=== PATIENT | female | born 1990 | race American Indian/Alaskan Native ===

== ENCOUNTER 2016-10-06 01:03 | Inpatient (IN) | payer MEDICAID ==
[2016-10-06] MEDS ORDERED: SUBLIMAZE IV PRN (03:15)
[2016-10-06] MEDS ORDERED: MINERAL OIL PO PRN (03:15)
[2016-10-06] MEDS ORDERED: BRETHINE IVP PRN (03:15)
[2016-10-06] MEDS ORDERED: BRETHINE SUB-Q PRN (03:15)
[2016-10-06] MEDS ORDERED: ePHEDrine SULFATE IV PRN ×2 (03:15→05:42)
[2016-10-06] MEDS ORDERED: XYLOCAINE 2% INFILTRATI ONE (03:15)
[2016-10-06] MEDS ORDERED: ZOFRAN IV PRN ×2 (03:15→11:00)
[2016-10-06] MEDS: LACTATED RINGERS 1,000 ML IV SCH ×3 (03:40→08:20)
[2016-10-06 03:44] LABS: Hematocrit 40.5 % (30.3-42.9); Hemoglobin 13.3 gm/dl (10.1-14.3); Mean Corpuscular HGB Conc 33 % (30-34); Mean Corpuscular Hemoglobin 28 pg (28-32); Mean Corpuscular Volume 87 fl (79-97); Red Blood Count 4.68 M/mm3 (3.65-5.03); Red Cell Distribution Width 14.3 % (13.2-15.2); White Blood Count 7.4 K/mm3 (4.5-11.0)
[2016-10-06] MEDS ORDERED: PITOCin/NS 20 UNIT/1000ML DRIP 20 UNITS/1,000 ML BAG IV SCH (04:00)
[2016-10-06] MEDS ORDERED: PITOCin/NS 30 UNIT/500ML 30 UNITS/500 ML BAG IV SCH (04:00)
[2016-10-06 04:27] LABS: Platelet Count 104 K/mm3 (140-440)
[2016-10-06] MEDS ORDERED: ePHEDrine SULFATE ONE (04:47)
[2016-10-06] MEDS ORDERED: NARCAN 2 MG/2 ML IV PRN (05:42)
--- NOTE | 2016-10-06 05:46 | Anesthesia Consultation ---
Anesthesia Consult and Med Hx Date of service: 10/06/16 - Airway Anesthetic Teeth Evaluation: Good ROM Head & Neck: Adequate Mental/Hyoid Distance: Adequate Mallampati Class: Class II Intubation Access Assessment: Probably Good - Pulmonary Exam CTA: Yes - Cardiac Exam Cardiac Exam: RRR - Pre-Operative Health Status ASA Pre-Surgery Classification: ASA2, Emergency Proposed Anesthetic Plan: Epidural, Spinal - Pre-Anesthesia Comment Pre-Anesthesia Comments: Thrombocytopenia(platelet count 104,000). Drawn 0311 on 10/06/16. No prior history of low platelet count and no H/O coagulopathy. - Pulmonary Hx Asthma: No COPD: No Hx Pneumonia: No - Cardiovascular System Hx Hypertension: No - Central Nervous System Hx Seizures: No Hx Psychiatric Problems: No - Endocrine Hx Renal Disease: No Hx End Stage Renal Disease: No Hx Hypothyroidism: No Hx Hyperthyroidism: No - Hematic Hx Anemia: No Hx Sickle Cell Disease: No - Other Systems Hx Alcohol Use: No
[2016-10-06] MEDS ORDERED: fentaNYL-BUPIV 2 MCG/ML-0.125% 200 MCG/100 ML BAG EPIDURAL SCH (06:00)
--- NOTE | 2016-10-06 09:19 | History and Physical Report ---
History of Present Illness Date of examination: 10/06/16 Date of admission: 10/06/16 03:02 Chief complaint: srom clear and early labor History of present illness: This is a 18 yo at 38+1 weeks here for srom clear last night. she stated that at 12am she noticed abdominal pain. She was admitted to labor and delivery. 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 denies: smoking, alcohol abuse - Obstetrical History Expected Date of Delivery: 10/19/16 Actual Gestation: 38 Week(s) 1 Day(s) : 1 Para: 0 Hx # Term Pregnancies: 0 Number of Pregnancies: 0 Spontaneous Abortions: 0 Induced : 0 Number of Living Children: 0 Medications and Allergies Allergies Allergy/AdvReac Type Severity Reaction Status Date / Time No Known Allergies Allergy Unverified 09/07/15 07:16 Home Medications Medication Instructions Recorded Confirmed Last Taken Type HYDROcodone/APAP 5-325 [[place] 1 each PO Q6HR PRN #10 tablet 09/07/15 Unknown Rx 5/325] Nitrofurantoin [place]/M-Cryst 100 mg PO Q12HR #14 capsule 09/07/15 Unknown Rx [Macrobid CAP] Active Meds: Active Medications Fentanyl (Sublimaze) 100 mcg IV Q2H PRN PRN Reason: Labor Pain Last Admin: 10/06/16 03:58 Dose: 100 mcg Lactated Ringer's (Lactated Ringers) 1,000 mls @ 125 mls/hr IV DIRECT CHRISTIANO Last Admin: 10/06/16 08:20 Dose: 125 mls/hr Oxytocin/Sodium Chloride (Pitocin/Ns 20 Unit/1000ml Drip) 20 units in 1,000 mls @ 125 mls/hr IV DIRECT CHRISTIANO Oxytocin/Sodium Chloride (Pitocin/Ns 30 Unit/500ml) 30 units in 500 mls @ 2 mls /hr IV TITR CHRISTIANO PRN Reason: Protocol Last Titration: 10/06/16 08:25 Dose: 0 ml/hr, 0 mls/hr Fentanyl/Bupivacaine/Sodium Chlor (Fentanyl-Bupiv 2 Mcg/Ml-0.125%) 200 mcg in 100 mls @ 12 mls/hr EPIDURAL TITR CHRISTIANO PRN Reason: Protocol Last Admin: 10/06/16 06:01 Dose: 12 mls/hr Mineral Oil (Mineral Oil) 30 ml PO QHS PRN PRN Reason: Constipation Ondansetron HCl (Zofran) 4 mg IV Q8H PRN PRN Reason: Nausea And Vomiting Last Admin: 10/06/16 06:13 Dose: 4 mg - Vital Signs Vital signs: Vital Signs Temp Pulse Resp BP 98.4 F 58 L 18 128/76 10/06/16 01:16 10/06/16 01:16 10/06/16 01:16 10/06/16 01:16 Temp Pulse Resp BP Pulse Ox 97.9 F 95 H 16 127/106 99 10/06/16 07:26 10/06/16 09:09 10/06/16 07:26 10/06/16 09:09 10/06/16 09:07 - Physical Exam Breasts: Positive: deferred Cardiovascular: Regular rate, Normal S1 Lungs: Positive: Clear to auscultation, Normal air movement Abdomen: Positive: normal appearance, soft, normal bowel sounds. Negative: distention, tenderness Genitourinary (Female): Positive: normal external genitalia, normal perenium Vulva: both: normal Vagina: Positive: normal moisture Cervix: Negative: lesion Uterus: Positive: normal size, normal contour Anus/Rectum: Positive: normal perianal skin Extremities: Positive: normal Deep Tendon Reflex Grade: Normal +2 - Obstetrical FHR: auscultation normal, category 1 Cervical Dilatation: 3 Uterine Contraction Pattern: Regular Uterine Tone Measurement Phase: Contraction Uterine Contraction Intensity: Moderate Results Result Diagrams: 10/06/16 03:11 Abnormal lab results 10/06/16 Range/Units 03:11 Plt Count 104 L (140-440) K/mm3 All other labs normal. Assessment and Plan A/P IUP 38 weeks srom clear offer epidural labs ivf efm pitocin for augmentation if needed expect vaginal delivery
--- NOTE | 2016-10-06 09:31 | Procedure Note ---
OB Delivery Note - Delivery Date of Delivery: 10/06/16 Surgeon: CHEN PRIETO Estimated blood loss: 300cc - Vaginal Delivery position: OA Intrapartum events: mult. late decelerations Delivery induction: none Delivery augmentation: pitocin Delivery monitor: external FHT, external uterine Route of delivery: vacuum extraction Indicators for instrumentation: nonreassuring FHR tracing Delivery placenta: spontaneous Delivery cord: 3 umbilical vessels Episiotomy: none Delivery laceration: none Delivery comments: 18 y/o now P1 experienced vacuum (10/06/16 ) @ (5606). Due to (non reassuring heart rate the vacuum was placed at (+2) station, ANDREZ position after bladder emptied and anesthesia found to be adequate. was delivered within two pulls without complication. The infants head/face was examined and no bruising noted. The infant's head was delivered in a controlled manner. The OP and nares were then bulb suctioned on the perineum. Amniotic fluid was clear. No nuchal cord was noted. The infant's body was then delivered in the usual manner without difficulty. The cord was clamped and cut. The was handed to nurse. The placenta delivered intact with 3VC followed by 30 units of Pitocin IV and uterine massage for hemostasis. EBL= 300cc. The baby boy delivered viable. Apgars 8 and 9. Weight 5 pounds 9 gu=4513 g patietn tolerated procedure well . - Infant B at 1 minute: 8 at 5 minutes: 9 Gender: Male
[2016-10-06] MEDS ORDERED: SODIUM CHLORIDE FLUSH SYRINGE 10 ML IV PRN (10:00)
[2016-10-06] MEDS ORDERED: TYLENOL PO PRN (10:30)
[2016-10-06] MEDS ORDERED: TORADOL IV PRN (11:00)
[2016-10-06] MEDS ORDERED: PHENERGAN PR PRN (11:00)
[2016-10-06] MEDS ORDERED: BENADRYL PO PRN (11:00)
[2016-10-06] MEDS ORDERED: PERCOCET 5/325 PO PRN (11:00)
[2016-10-06] MEDS ORDERED: PHENERGAN PO PRN (11:00)
[2016-10-06] MEDS ORDERED: DULCOLAX PR PRN (11:00)
[2016-10-06] MEDS ORDERED: TUCKS PAD TP PRN (11:00)
[2016-10-06] MEDS ORDERED: LANSINOH TP PRN (11:00)
[2016-10-06] MEDS ORDERED: MILK OF MAGNESIA PO PRN (22:00)
[2016-10-06] MEDS: SENOKOT S PO SCH (22:19)
[2016-10-06] MEDS: COLACE PO SCH (22:20)
[2016-10-06] MEDS: NORCO 5/325 PO PRN (22:20)
[2016-10-06 22:54] LABS: Hematocrit 37.1 % (30.3-42.9); Hemoglobin 12.2 gm/dl (10.1-14.3); Mean Corpuscular HGB Conc 33 % (30-34); Mean Corpuscular Hemoglobin 29 pg (28-32); Mean Corpuscular Volume 89 fl (79-97); Platelet Count 111 K/mm3 (140-440); Red Blood Count 4.19 M/mm3 (3.65-5.03); Red Cell Distribution Width 14.7 % (13.2-15.2); White Blood Count 13.4 K/mm3 (4.5-11.0)
[2016-10-07] MEDS: NORCO 5/325 PO PRN ×2 (04:22→12:03)
[2016-10-07] MEDS: MOTRIN PO SCH ×3 (05:55→12:32)
[2016-10-07] MEDS ORDERED: BOOSTRIX IM ONE (06:00)
[2016-10-07] MEDS ORDERED: PRENATAL VITAMIN PO SCH (10:00)
[2016-10-07] MEDS: COLACE PO SCH (10:28)
[2016-10-07] MEDS: SENOKOT S PO SCH (10:30)
[2016-10-07] MEDS ORDERED: M-M-R II VACCINE SUB-Q ONE (11:00)
--- NOTE | 2016-10-07 11:55 | Progress Note ---
Assessment and Plan A: PPD#1 s/p at term P: Routine care. Discharge today with follow up in 4 weeks. Subjective - Subjective Date of service: 10/07/16 Principal diagnosis: s/p at term Interval history: No issues overnight. Pt would like to go home. Patient reports: appetite normal, voiding normally, pain well controlled, ambulating normally, no dizzy ambulation, no nauseated [place]: doing well Objective - Vital Signs Latest vital signs: Vital Signs Temp Pulse Resp BP 10/07/16 08:35 98.3 F 72 18 112/65 10/07/16 00:15 97.8 F 66 20 97/61 10/06/16 21:20 98.4 F 77 20 116/65 10/06/16 16:41 98.6 F 76 20 110/70 Intake and Output 10/06/16 10/07/16 10/07/16 22:59 06:59 14:59 Intake Total 360 240 Output Total 500 Balance -140 240 Intake: Oral 360 240 Output: Urine 500 Void 500 Other: Total, Intake Amount 120 120 Total, Output Amount 500 # Voids Void 1 1 - Exam Breasts: Present: deferred Cardiovascular: Present: Regular rate Lungs: Present: Clear to auscultation Abdomen: Present: soft Uterus: Present: fundal height at umbilicus Extremities: Present: normal - Labs Labs: Abnormal lab results 10/06/16 Range/Units Unknown WBC 13.4 H (4.5-11.0) K/mm3 Plt Count 111 L (140-440) K/mm3
--- NOTE | 2016-10-07 16:07 | Discharge Summary ---
Providers - Providers Date of Admission: 10/06/16 03:02 Date of discharge: 10/07/16 Attending physician: CHEN PRIETO MD Primary care physician: CHEN PRIETO MD Hospitalization Reason for admission: rupture of membranes Delivery: Procedure details: Please see delivery note. Episiotomy: none Laceration: none Other procedures: none complications: none Discharge diagnosis: IUP at term delivered [place] baby: male Hospital course: The patient was admitted with ruptured membranes and went on to deliver a male via spontaneous vaginal delivery which she tolerated well. Her course uncomplicated and she met discharge criteria on postoperative day #1. She'll follow-up in the office in 4 weeks. Condition at discharge: Stable Disposition: DC- TO HOME OR SELFCARE - Discharge Diagnoses (1) Term of male Status: Acute Plan - Discharge Medications Prescriptions: HYDROcodone/APAP 5-325 [[place] 5/325] 1 each PO Q6HR PRN #15 tablet PRN Reason: Pain Ibuprofen [Motrin] 800 mg PO Q8HR PRN #30 tablet PRN Reason: Pain - Provider Discharge Summary Activity: no sex for 6 weeks, no heavy lifting 4 weeks, no strenuous exercise Diet: routine Instructions: routine Additional instructions: [] Smoking cessation referral if applicable(refer to patient education folder for contact #) [] Refer to [facility] Booklet Call your doctor immediately for: * Fever > 100.5 * Heavy vaginal bleeding ( >1 pad per hour) * Severe persistent headache * Shortness of breath * Reddened, hot, painful area to leg or breast * Drainage or odor from incision. * Keep incision clean and dry at all times and follow doctor's instructions regarding bathing/showering Please schedule your son's circumcision before he is one month old. - Follow up plan Follow up: CHEN PRIETO MD [Primary Care Provider] - 11/03/16 ( exam )
[2016-10-07 17:42] VITALS: BP 123/72
== END 2016-10-07 18:10 | disposition home or self-care (01) | DRG 775 ==
LOC: TRG 01:03 → LD 03:02 → OB 11:30
PROVIDERS: ADMIT Obstetrics & Gynecology; ATTEND Obstetrics & Gynecology
PROC: 10D07Z6 Extraction of Products of Conception, Vacuum, Via Natural or Artificial Opening (ICD-10-PCS; principal; 2016-10-06)
PROC: 3E0234Z Introduction of Serum, Toxoid and Vaccine into Muscle, Percutaneous Approach (ICD-10-PCS; 2016-10-07)
DX: O76 Abnormality in fetal heart rate and rhythm complicating labor and delivery (principal); Z3A.38 38 weeks gestation of pregnancy; Z37.0 Single live birth; Z23 Encounter for immunization
CPT/HCPCS: 36415; 85027; 86850; 86900; 86901; 88307; 99211; A6250; G0463; J2405; J2590; J3010; J7120

== ENCOUNTER 2021-10-04 11:29 | Inpatient (IN) | payer OTHER ==
[2021-10-04] MEDS ORDERED: ePHEDrine SULFATE 50 MG/1 ML INJ IV PRN (14:27)
[2021-10-04] MEDS ORDERED: ONDANSETRON 4 MG/2 ML INJ IV PRN ×2 (14:27→16:54)
[2021-10-04] MEDS ORDERED: BUTORPHANOL 2 MG/1 ML INJ IV PRN ×2 (14:27)
[2021-10-04] MEDS ORDERED: fentaNYL 100 MCG/2 ML INJ IV PRN (14:27)
[2021-10-04] MEDS ORDERED: METHYLERGONOVINE MALEATE 0.2 MG/ML VIAL IM PRN (14:27)
[2021-10-04] MEDS ORDERED: LIDOCAINE (2%) 20 MG/1 ML VIAL 20 ML MDV INFILTRATI ONE (14:27)
[2021-10-04] MEDS ORDERED: OXYTOCIN 10 UNIT/1 ML INJ IM PRN (14:27)
[2021-10-04] MEDS ORDERED: TERBUTALINE 1 MG/1 ML INJ SUB-Q PRN (14:27)
[2021-10-04] MEDS ORDERED: LOPERAMIDE 2 MG CAP PO PRN (14:27)
[2021-10-04] MEDS ORDERED: miSOPROStol 200 MCG TAB PR PRN (14:27)
[2021-10-04] MEDS ORDERED: CARBOPROST TROMETHAMINE 250 MCG/1 ML INJ IM PRN (14:27)
[2021-10-04] MEDS ORDERED: ACETAMINOPHEN 325 MG TAB PO PRN ×2 (14:27→16:54)
[2021-10-04] MEDS ORDERED: MINERAL OIL 30 ML ORAL LIQD PO PRN (14:27)
[2021-10-04] MEDS ORDERED: LACTATED RINGERS 1,000 ML IV SCH (14:30)
[2021-10-04] MEDS ORDERED: AMPICILLIN/NS 2 GM/100 ML 2 GM/100 ML BAG IV ONE (14:32)
[2021-10-04] MEDS ORDERED: OXYTOCIN DRIP 30 UNITS/500 ML BAG IV SCH ×2 (15:00)
[2021-10-04 16:14] LABS: Hemoglobin 12.2 gm/dl (10.1-14.3); Mean Corpuscular HGB Conc 32 % (30-34); Mean Corpuscular Volume 86 fl (79-97); Platelet Count 112 K/mm3 (140-440); Red Blood Count 4.43 M/mm3 (3.65-5.03); Red Cell Distribution Width 16.6 % (13.2-15.2)
--- NOTE | 2021-10-04 16:50 | History and Physical Report ---
History of Present Illness Date of examination: 10/04/21 Date of admission: 10/04/21 14:28 Chief complaint: Contractions History of present illness: 31-year-old -0-0-1 at 40+2 weeks who presents in active labor with advanced cervical dilatation of 8 cm. The patient is GBS negative. Past History Past Medical History: no pertinent history Past Surgical History: no surgical history Social history: - Obstetrical History Expected Date of Delivery: 10/02/21 Actual Gestation: 40 Week(s) 2 Day(s) : 2 Para: 1 Hx # Term Pregnancies: 1 Number of Pregnancies: 0 Spontaneous Abortions: 0 Induced : 0 Number of Living Children: 1 Medications and Allergies Allergies Allergy/AdvReac Type Severity Reaction Status Date / Time No Known Allergies Allergy Unverified 09/07/15 07:16 Home Medications Medication Instructions Recorded Confirmed Last Taken Type HYDROcodone/APAP 5-325 [[place] 1 each PO Q6HR PRN #10 tablet 09/07/15 Unknown Rx 5/325] Nitrofurantoin [place]/M-Cryst 100 mg PO Q12HR #14 capsule 09/07/15 Unknown Rx [Macrobid CAP] HYDROcodone/APAP 5-325 [[place] 1 each PO Q6HR PRN #15 tablet 10/07/16 Unknown Rx 5/325] Ibuprofen [Motrin] 800 mg PO Q8HR PRN #30 tablet 10/07/16 Unknown Rx Active Meds: Active Medications Acetaminophen (Acetaminophen 325 Mg Tab) 650 mg PO Q4H PRN PRN Reason: Pain, Mild (1-3) Butorphanol Tartrate (Butorphanol 2 Mg/1 Ml Inj) 1 mg IV Q2H PRN PRN Reason: Pain, Moderate(4-6) LABOR PAIN Butorphanol Tartrate (Butorphanol 2 Mg/1 Ml Inj) 2 mg IV Q2H PRN PRN Reason: Pain , Severe (7-10) Carboprost Tromethamine (Carboprost Tromethamine 250 Mcg/1 Ml Inj) 250 mcg IM ONCE PRN PRN Reason: Uterine Bleeding Ephedrine Sulfate (Ephedrine Sulfate 50 Mg/1 Ml Inj) 10 mg IV Q2M PRN PRN Reason: Hypotension Fentanyl (Fentanyl 100 Mcg/2 Ml Inj) 100 mcg IV Q2H PRN PRN Reason: Pain,Severe (7-10) LABOR PAIN Oxytocin/Sodium Chloride (Pitocin/Ns 30 Unit/500ml) 30 units in 500 mls @ 2 mls/hr IV TITR CHRISTIANO; Protocol Lactated Ringer's (Lactated Ringers) 1,000 mls @ 125 mls/hr IV DIRECT CHRISTIANO Oxytocin/Sodium Chloride (Pitocin/Ns 30 Unit/500ml) 30 units in 500 mls @ 40 mls/hr IV TITR CHRISTIANO; Protocol Ampicillin Sodium (Ampicillin/Ns 1 Gm/50 Ml) 1 gm in 50 mls @ 100 mls/hr IV Q4H CHRISTIANO; Protocol Loperamide HCl (Loperamide 2 Mg Cap) 2 mg PO ONCE PRN PRN Reason: give with Hemabate Methylergonovine Maleate (Methylergonovine Maleate 0.2 Mg/Ml Vial) 0.2 mg IM ONCE PRN PRN Reason: Uterine Bleeding Mineral Oil (Mineral Oil 30 Ml Oral Liqd) 30 ml PO QHS PRN PRN Reason: Constipation Misoprostol (Misoprostol 200 Mcg Tab) 800 mcg SD ONCE PRN PRN Reason: Uterine Bleeding Ondansetron HCl (Ondansetron 4 Mg/2 Ml Inj) 4 mg IV Q8H PRN PRN Reason: Nausea And Vomiting Oxytocin (Oxytocin 10 Unit/1 Ml Inj) 10 unit IM ONCE PRN PRN Reason: Uterine Bleeding Terbutaline Sulfate (Terbutaline 1 Mg/1 Ml Inj) 0.25 mg SUB-Q ONCE PRN PRN Reason: Hyperstimulation/Hypertonicity Review of Systems All systems: negative Genitourinary: pelvic pain, contractions - Vital Signs Vital signs: Vital Signs Pulse Pulse Ox 65 99 10/04/21 13:33 10/04/21 13:33 Temp Pulse Resp BP Pulse Ox 98.1 F 72 20 100/74 100 10/04/21 13:34 10/04/21 16:44 10/04/21 13:34 10/04/21 16:39 10/04/21 16:44 - Physical Exam Breasts: Positive: deferred Cardiovascular: Regular rate Lungs: Positive: Clear to auscultation Abdomen: Positive: normal appearance - Obstetrical Cervical Dilatation: 8 Results Result Diagrams: 10/04/21 15:35 Abnormal lab results 10/04/21 Range/Units 15:35 RDW 16.6 H (13.2-15.2) % Plt Count 112 L (140-440) K/mm3 All other labs normal. Assessment and Plan - Patient Problems (1) Active labor at term Current Visit: Yes Status: Acute Plan to address problem: Admit to labor and delivery
[2021-10-04] MEDS ORDERED: KETOROLAC 30 MG/1 ML INJ ONE (16:53)
[2021-10-04] MEDS ORDERED: WITCH HAZEL/ GLYCERIN PAD TP PRN (16:54)
[2021-10-04] MEDS ORDERED: PROMETHAZINE 25 MG RECT SUPP PR PRN (16:54)
[2021-10-04] MEDS ORDERED: MAGNESIUM HYDROXIDE (MOM) ORAL LIQD UDC PO PRN (16:54)
[2021-10-04] MEDS ORDERED: LANOLIN/ZINC/DIMETHICONE (LANSINOH) 7 GM TP PRN (16:54)
[2021-10-04] MEDS ORDERED: PROMETHAZINE 25 MG TAB PO PRN (16:54)
[2021-10-04] MEDS ORDERED: oxyCODONE /ACETAMINOPHEN 5-325MG TAB PO PRN (16:54)
[2021-10-04] MEDS ORDERED: diphenhydrAMINE 25 MG CAP PO PRN (16:54)
--- NOTE | 2021-10-04 16:54 | Procedure Note ---
OB Delivery Note - Delivery Date of Delivery: 10/04/21 Surgeon: GLORIA BROWN Estimated blood loss: 100cc - Vaginal Delivery presentation: vertex Delivery position: OA Delivery monitor: external FHT, external uterine Route of delivery: Delivery placenta: spontaneous Delivery cord: 3 umbilical vessels Episiotomy: none Delivery laceration: none Anesthesia: none - Infant A at 1 minute: 8 at 5 minutes: 9 Gender: Female (Weight 7 pounds 5 ounces)
[2021-10-04] MEDS ORDERED: KETOROLAC 30 MG/1 ML INJ IV ONE (16:55)
[2021-10-04] MEDS ORDERED: AMPICILLIN/NS 1 GM/50 ML 1 GM/50 ML BAG IV SCH (19:00)
[2021-10-04] MEDS: IBUPROFEN 800 MG TAB PO SCH (23:00)
[2021-10-05 03:38] LABS: Hepatitis C Virus Antibody Non-Reactive (NonReactive)
[2021-10-05 05:04] LABS: Hematocrit 34.4 % (30.3-42.9)
[2021-10-05] MEDS: IBUPROFEN 800 MG TAB PO SCH ×4 (06:24→23:33)
--- NOTE | 2021-10-05 10:03 | Progress Note ---
Assessment and Plan - Patient Problems (1) Active labor at term Current Visit: Yes Status: Acute Plan to address problem: Routine care Discharge home in a.m. Subjective - Subjective Date of service: 10/05/21 Interval history: Patient is without any significant complaints. She reports her lochia is minimal Patient reports: appetite normal, voiding normally, pain well controlled [place]: doing well Objective - Vital Signs Latest vital signs: Vital Signs Temp Pulse Resp BP BP Pulse Ox Pulse Ox 10/05/21 08:10 98.2 F 70 20 100/56 98 10/05/21 08:00 98 10/05/21 05:31 98.1 F 64 20 102/60 97 10/05/21 01:18 98.3 F 87 18 97/52 97 10/04/21 21:08 98.3 F 89 18 110/59 96 98 10/04/21 19:53 60 112/61 93 10/04/21 19:52 61 97 10/04/21 19:51 98.7 F 63 16 112/61 98 10/04/21 17:54 59 L 109/62 10/04/21 17:50 73 99 10/04/21 17:45 64 97 10/04/21 17:41 76 93 10/04/21 17:40 59 L 99 10/04/21 17:39 62 117/60 10/04/21 17:35 62 98 10/04/21 17:34 69 87 10/04/21 17:30 73 98 10/04/21 17:25 59 L 99 10/04/21 17:24 60 117/61 10/04/21 17:20 67 97 10/04/21 17:15 77 97 10/04/21 17:10 76 98 10/04/21 17:09 75 119/61 10/04/21 17:05 87 99 10/04/21 17:00 92 H 92 10/04/21 16:55 76 99 10/04/21 16:54 78 117/61 10/04/21 16:49 96 H 100 10/04/21 16:44 72 100 10/04/21 16:39 78 100/74 98 10/04/21 16:34 71 99 10/04/21 16:29 93 H 96 10/04/21 16:24 96 H 135/63 94 10/04/21 16:19 95 H 98 07/30/22 16:14 60 98 10/04/21 16:13 92 H 92 10/04/21 16:09 51 L 72 L 10/04/21 16:04 64 94 10/04/21 15:59 59 L 99 10/04/21 15:54 72 121/62 99 10/04/21 15:34 88 92 10/04/21 15:33 65 97 10/04/21 15:28 59 L 98 10/04/21 15:23 70 98 10/04/21 15:18 72 98 10/04/21 15:13 57 L 99 10/04/21 15:12 59 L 93 10/04/21 15:08 57 L 99 10/04/21 15:06 70 94 10/04/21 15:03 68 99 10/04/21 15:00 65 92 10/04/21 14:58 80 100 10/04/21 14:53 104 H 98 10/04/21 14:48 78 98 10/04/21 14:43 66 99 10/04/21 14:38 85 99 10/04/21 14:33 64 98 10/04/21 14:28 91 H 98 10/04/21 14:23 62 99 10/04/21 14:21 79 92 10/04/21 14:18 65 99 10/04/21 14:15 94 H 94 10/04/21 14:13 76 100 10/04/21 14:08 59 L 100 10/04/21 14:03 66 98 10/04/21 13:58 64 100 10/04/21 13:53 73 99 10/04/21 13:48 106 H 100 10/04/21 13:43 93 H 100 10/04/21 13:38 63 99 10/04/21 13:34 98.1 F 60 20 124/74 124/74 99 10/04/21 13:33 65 99 Intake and Output 10/04/21 10/05/21 10/05/21 22:59 06:59 14:59 Intake Total 540 240 Output Total 350 1025 Balance -350 -485 240 Intake: Oral 240 Intake, Free Water 540 Output: Urine 350 1025 Void 350 1025 Other: Total, Intake Amount 240 Total, Output Amount 350 350 # Voids Void 1 1 Estimated Blood Loss 100 - Exam Abdomen: Present: normal appearance, soft Uterus: Present: normal - Labs Labs: Abnormal lab results 10/04/21 Range/Units 15:35 RDW 16.6 H (13.2-15.2) % Plt Count 112 L (140-440) K/mm3
--- NOTE | 2021-10-05 10:05 | Discharge Summary ---
Providers - Providers Date of Admission: 10/04/21 14:28 Date of discharge: 10/06/21 Attending physician: GLORIA BROWN Primary care physician: SWEET DOUGH MIXER Hospitalization Reason for admission: active labor Delivery: Discharge diagnosis: other (Active labor) Hospital course: The patient admitted in active labor with advanced cervical dilatation. She had a spontaneous vaginal delivery without difficulty. Her course was uneventful. Condition at discharge: Good Disposition: 01 HOME / SELF CARE / HOMELESS - Discharge Diagnoses (1) Active labor at term Status: Acute Plan - Discharge Medications Prescriptions: Ibuprofen [Motrin] 800 mg PO Q8HR PRN #30 tablet PRN Reason: Pain , Severe (7-10) HYDROcodone/APAP 5-325 [[place] 5/325] 1 each PO Q6HR PRN #15 tablet PRN Reason: Pain - Provider Discharge Summary Activity: no sex for 6 weeks, no heavy lifting 4 weeks, no strenuous exercise Diet: routine Instructions: routine Additional instructions: [] Smoking cessation referral if applicable(refer to patient education folder for contact #) [] Refer to [facility] Booklet Call your doctor immediately for: * Fever > 100.5 * Heavy vaginal bleeding ( >1 pad per hour) * Severe persistent headache * Shortness of breath * Reddened, hot, painful area to leg or breast * Schedule visit in 4 weeks - Follow up plan
[2021-10-06] MEDS: IBUPROFEN 800 MG TAB PO SCH ×2 (05:34→13:00)
[2021-10-06 16:44] VITALS: BP 115/69
== END 2021-10-06 16:00 | disposition home or self-care (01) | DRG 807 ==
LOC: TRG 11:29 → APU 11:30 → TRG 14:28 → LD 14:28 → OB 20:53
PROVIDERS: ADMIT Obstetrics & Gynecology; ATTEND Obstetrics & Gynecology
PROC: 10E0XZZ Delivery of Products of Conception, External Approach (ICD-10-PCS; principal; 2021-10-04)
DX: O48.0 Post-term pregnancy (principal); Z37.0 Single live birth; Z3A.40 40 weeks gestation of pregnancy; Z20.822 Contact with and (suspected) exposure to COVID-19; O77.0 Labor and delivery complicated by meconium in amniotic fluid
CPT/HCPCS: 36415; 85014; 85018; 85027; 86592; 86706; 86762; 86803; 86850; 86900; 86901; 87806; G0378; J1885; J2590; U0003